=== PATIENT | male | born 1960 | race Caucasian/White ===

== ENCOUNTER → 2019-04-01 | Emergency (ER) | payer OTHER ==
[~2019-04-01] VITALS: Ht 175.3 cm; Wt 95.3 kg
[~2019-04-01] MED LIST: CATAFLAM50 MG PO; CLEOCIN HCL300 MG PO; INTESTINEX680 M1 PO
== END | disposition home or self-care (01) ==
LOC: ER 14:55
DX: K12.2 Cellulitis and abscess of mouth (principal)

== ENCOUNTER 2022-04-06 07:32 | Outpatient (CLI) | payer OTHER | END 2022-04-06 07:45 | disposition home or self-care (01) | LOC: RAD 07:32 | PROVIDERS: ATTEND Physical Medicine & Rehabilitation | DX: M17.12 Unilateral primary osteoarthritis, left knee (principal); M54.2 Cervicalgia ==

== ENCOUNTER 2022-04-22 07:18 | Outpatient (CLI) | payer OTHER | END 2022-04-22 07:25 | disposition home or self-care (01) | LOC: MRI 07:18 | PROVIDERS: ATTEND Physical Medicine & Rehabilitation | DX: M25.562 Pain in left knee (principal); M25.462 Effusion, left knee | CPT/HCPCS: 73721 ==

== ENCOUNTER 2023-01-17 07:21 | Outpatient (CLI) | payer OTHER | END 2023-01-17 07:28 | disposition home or self-care (01) | LOC: RAD 07:21 | PROVIDERS: ATTEND Pulmonary Function Technologist | DX: K57.92 Diverticulitis of intestine, part unspecified, without perforation or abscess without bleeding (principal); J45.901 Unspecified asthma with (acute) exacerbation ==